=== PATIENT | male | born 1980 ===

== ENCOUNTER 2017-09-11 19:10 | Emergency (ER) | payer OTHER ==
[2017-09-11 19:28] VITALS: RESP 18
[2017-09-11] MEDS ORDERED: Sodium Chloride 0.9% 1,000 ML IV STA (19:45)
--- NOTE | 2017-09-11 20:14 | ED PDOC ---
HPI: CCC, URI, Sore Throat Time Seen by Provider: 09/11/17 19:32 Chief Complaint (Nursing): Back Pain Chief Complaint (Provider): Cough History Per: Patient History/Exam Limitations: no limitations Have you had recent travel within the past 21 days to any of the following countries: [place], [place], [place] or [place]?: No Onset/Duration Of Symptoms: Days (2 weeks) Current Symptoms Are (Timing): Still Present Sick Contacts (Context): None Associated Symptoms: Fever, Cough, Sputum. denies: Nausea, Vomiting, Diarrhea Additional Complaint(s): 37 y/o male with a history of kidney infections and hypercholesterolemia presents to the ED with a cough. Patient states it began two weeks ago with sneezing and coughing which became worse 5 days ago. He states that 4 days ago he developed a fever but never checked the temperature. Patient took Tylenol with no relief. This morning he felt atraumatic left lower sided non-radiating back pain. He claims to have had similar symptoms in the past and was diagnosed with a kidney infection approximately 2 years ago which did not require admission to hospital and was treated with an oral antibiotic. Denies any rash, nausea, vomiting, abdominal pain, dysuria, hematuria, flank pain, sick contacts , recent travel, headache, penile discharge, penile rash or recent trauma. Past Medical History Reviewed: Historical Data, Nursing Documentation, Vital Signs Vital Signs: Last Vital Signs Temp 99.1 F 09/11/17 21:42 Pulse 88 09/11/17 21:42 Resp 18 09/11/17 21:42 BP 115/60 09/11/17 21:42 Pulse Ox 97 09/11/17 23:20 - Medical History PMH: Hypercholesterolemia Other PMH: kidney infections - Surgical History Surgical History: No Surg Hx - Family History Family History: States: Unknown Family Hx - Social History Current smoker - smoking cessation education provided: No Ex-Smoker (has not smoked in the last 12 months): No Alcohol: None Drugs: Denies - Home Medications Home Medications: Ambulatory Orders Medication Instructions Recorded Docusate Sodium [Colace] 100 mg PO DAILY PRN #5 sgl 04/16/14 Pantoprazole [Protonix EC Tab] 20 mg PO DAILY #30 ect 09/05/16 Azithromycin [Zithromax] 250 mg PO DAILY #6 tab 09/11/17 Ciprofloxacin [Cipro] 500 mg PO BID #14 tab 09/11/17 Cyclobenzaprine [Cyclobenzaprine 10 mg PO Q8 PRN #14 tab 09/11/17 HCl] Naproxen [Naprosyn] 500 mg PO BID PRN #14 tab 09/11/17 - Allergies Allergies/Adverse Reactions: Allergies Allergy/AdvReac Type Severity Reaction Status Date / Time No Known Allergies Allergy Verified 04/16/14 19:00 Review of Systems ROS Statement: Except As Marked, All Systems Reviewed And Found Negative Constitutional: Positive for: Fever. Negative for: Other (sick contacts or recent trauma) Respiratory: Positive for: Cough, Other (congestion) Gastrointestinal: Negative for: Nausea, Vomiting, Abdominal Pain Genitourinary Male: Negative for: Dysuria, Hematuria Musculoskeletal: Positive for: Back Pain (left lower side non-radiating). Negative for: Other (flank pain) Skin: Negative for: Rash Neurological: Negative for: Headache Physical Exam - Reviewed Nursing Documentation Reviewed: Yes Vital Signs Reviewed: Yes - Physical Exam Appears: Positive for: Non-toxic, In Acute Distress (minimal painful distress) Head Exam: Positive for: ATRAUMATIC, NORMAL INSPECTION, NORMOCEPHALIC Skin: Positive for: Normal Color, Warm Eye Exam: Positive for: EOMI, Normal appearance, PERRL ENT: Positive for: Normal ENT Inspection Neck: Positive for: Normal, Painless ROM, Supple Cardiovascular/Chest: Positive for: Regular Rate, Rhythm. Negative for: Murmur Respiratory: Positive for: Normal Breath Sounds. Negative for: Respiratory Distress Gastrointestinal/Abdominal: Positive for: Normal Exam, Soft. Negative for: Tenderness Back: Positive for: Normal Inspection. Negative for: L CVA Tenderness, R CVA Tenderness, Vertebral Tenderness Extremity: Positive for: Normal ROM. Negative for: Pedal Edema, Deformity Neurologic/Psych: Positive for: Alert, Oriented (x3) - Laboratory Results Result Diagrams: 09/11/17 20:25 09/11/17 20:25 - ECG O2 Sat by Pulse Oximetry: 97 (RA) Pulse Ox Interpretation: Normal - Radiology X-Ray: Interpreted by Me (CXR) X-Ray Interpretation: No Acute Disease Medical Decision Making Medical Decision Making: Time: 19:17 Impression: Fever, cough, and back pain Initial Plan: * Venous blood gas * CMP * CBC * Chest X-Ray * Tylenol 975 mg * Toradol 30 mg IVP * IV Fluids * Blood Culture * Influenza Test * Strep Test * Urinalysis 2024 UA: trace leuks; moderate hematuria CT abd/pelvis w/o contrast ordered. 2199 CT abd/pelvis w/o contrast: 1: No definite CT evidence of urolithiasis, Pulmonary nodules Repeat temp: 99.1; HR: 88 On re-evaluation, pt. reports feeling better. States back pain has improved but is still present. No CVA tenderness b/l. No abd tenderness to deep palpation throughout all quadrants. Informed of plan and advised to f/u with PMD but if symptoms worsen pt. is to return to ED immediately. Informed of CT results and told to f/u with PMD for repeat CT chest to evaluate pulmonary nodule. Scribe Attestation: Documented by Vanesa Glynn acting as a scribe for Cuong Oneill PA-C. MD Scribe Attestation: All medical record entries made by the Scribe were at my direction and personally dictated by me. I have reviewed the chart and agree that the record accurately reflects my personal performance of the history, physical exam, medical decision making, and the department course for this patient. I have also personally directed, reviewed, and agree with the discharge instructions and disposition. Disposition - Clinical Impression Clinical Impression: Acute bronchitis, UTI (urinary tract infection) - Patient ED Disposition Is Patient to be Admitted: No - Disposition Referrals: [facility] [Outside] [facility] [Outside] Disposition: Routine/Home Disposition Time: 22:15 Condition: IMPROVED Additional Instructions: Follow up with PMD for further evaluation Return to ED immediately if symptoms worsen Prescriptions: Azithromycin [Zithromax] 250 mg PO DAILY #6 tab Ciprofloxacin [Cipro] 500 mg PO BID #14 tab Cyclobenzaprine [Cyclobenzaprine HCl] 10 mg PO Q8 PRN #14 tab PRN Reason: Muscle Spasm Naproxen [Naprosyn] 500 mg PO BID PRN #14 tab PRN Reason: Pain Instructions: Acute Bronchitis, Adult (DC), Urinary Tract Infection, Adult (DC) Forms: [employer] ([employer]) Print Language: BELIZEAN
[2017-09-11 20:31] LABS: VENOUS BLOOD GAS BASE EXCESS 2.6 mmol/L (0.0-2.0); VENOUS BLOOD GAS PCO2 41 mmHg (40-60); VENOUS BLOOD GAS PO2 36 mm/Hg (30-55); VENOUS BLOOD PH 7.43 (7.32-7.43)
[2017-09-11 20:36] LABS: BASO # 0.1 K/uL (0.0-0.2); BASO % 0.5 % (0.0-2.0); EOS # 0.4 K/uL (0.0-0.7); EOS % 3.1 % (0.0-4.0); HEMOGLOBIN 14.4 g/dL (12.0-18.0); LYMPH # 1.6 K/uL (1.0-4.3); LYMPH % 12.5 % (20.0-40.0); MEAN CELL VOLUME 88.4 fl (80.0-94.0); MEAN CORPUSCULAR HEMOGLOBIN 29.9 pg (27.0-31.0); MEAN CORPUSCULAR HGB CONC 33.8 g/dL (33.0-37.0); MONO # 0.9 K/uL (0.0-0.8); MONO % 6.8 % (0.0-10.0); NEUT # 10.1 K/uL (1.8-7.0); NEUT % 77.1 % (50.0-75.0); NRBC % 0.1 % (0.0-0.0); RBC 4.84 Mil/uL (4.40-5.90); RED CELL DISTRIBUTION WIDTH 13.7 % (11.5-14.5); WHITE BLOOD COUNT 13.1 K/uL (4.8-10.8)
[2017-09-11 20:42] LABS: SQUAMOUS EPITHIAL 2 /hpf (0-5); URINE BACTERIA RARE (<OCC); URINE BILIRUBIN NEGATIVE (NEGATIVE); URINE BLOOD MODERATE (NEGATIVE); URINE CLARITY SLIGHTY-CLOUDY (Clear); URINE COLOR YELLOW (YELLOW); URINE GLUCOSE (UA) NEG (Normal); URINE LEUKOCYTE ESTERASE TRACE Leu/uL (Negative); URINE PROTEIN NEGATIVE (NEGATIVE); URINE UROBILINOGEN 0.2-1.0 mg/dL (0.2-1.0)
[2017-09-11 20:46] LABS: ALB/GLOB RATIO 1.2 (1.0-2.1); ALBUMIN 4.3 g/dL (3.5-5.0); ALT/SGPT 49 U/L (21-72); AST/SGOT 29 U/L (17-59); BLOOD UREA NITROGEN 10 mg/dl (9-20); CALCIUM 8.7 mg/dL (8.4-10.2); GFR AFRICAN-AMERICAN > 60; GFR NON-AFRICAN AMERICAN > 60
--- NOTE | 2017-09-11 22:08 | CT ---
EXAM: CT Abdomen and Pelvis Without Intravenous Contrast CLINICAL HISTORY: 37 years old, male; Pain; Abdominal pain; Flank; Left; Additional info: Hematuria, lower back pain TECHNIQUE: Axial computed tomography images of the abdomen and pelvis without intravenous contrast. All CT scans at this facility use one or more dose reduction techniques, viz.: automated exposure control; ma/kV adjustment per patient size (including targeted exams where dose is matched to indication; i.e. head); or iterative reconstruction technique. Coronal and sagittal reformatted images were created and reviewed. COMPARISON: CT - ABD PELVIS PO IV CONTRAST 2014-04-16 22:12 FINDINGS: Lung bases: Few pulmonary nodules, up to 0.3 cm. ABDOMEN: Liver: Fatty infiltration. Gallbladder and bile ducts: No calcified stones. No ductal dilation. Pancreas: Unremarkable. No ductal dilation. Spleen: No splenomegaly. Adrenals: No mass. Kidneys and ureters: No renal calculi. No hydronephrosis. Stomach and bowel: No definite mural thickening. No obstruction. PELVIS: Appendix: Normal caliber. No inflammation. Bladder: Unremarkable. No stones. Reproductive: Unremarkable as visualized. ABDOMEN and PELVIS: Intraperitoneal space: No significant fluid collection. No free air. Bones/joints: Mild degenerative changes of spine. No acute fracture. Soft tissues: Tiny umbilical hernia containing fat. Small inguinal hernias containing fat. Vasculature: Unremarkable. No aneurysm. Lymph nodes: No pathologically enlarged lymph nodes. IMPRESSION: 1. No definite CT evidence of urolithiasis. 2. Pulmonary nodules. For low-risk patients, no follow-up is necessary. For high-risk patients (smoking history or other known risk factors) an optional CT at 12 months could be performed. 3. Incidental/non-acute findings are described above.
[2017-09-11 23:16] VITALS: O2SAT 97
[2017-09-12 00:13] VITALS: BP 116/78; PULSE 80; TEMP 98.9
--- NOTE | 2017-09-12 07:55 | RAD ---
HISTORY: Cough. COMPARISON: No prior. TECHNIQUE: Chest PA and lateral FINDINGS: LUNGS: No active pulmonary disease. PLEURA: No significant pleural effusion identified. No pneumothorax apparent. CARDIOVASCULAR: Normal. OSSEOUS STRUCTURES: No significant abnormalities. VISUALIZED UPPER ABDOMEN: Normal. OTHER FINDINGS: None. IMPRESSION: No active disease.
== END 2017-09-12 00:12 | disposition home or self-care (01) ==
LOC: H.ER 19:10
DX: J20.9 Acute bronchitis, unspecified (principal); N39.0 Urinary tract infection, site not specified; E78.00 Pure hypercholesterolemia, unspecified
CPT/HCPCS: 71046; 74176; 80053; 81003; 82803; 85025; 87040; 87070; 87430; 87804; 96361; 96374; 99284; J1885; J7040